=== PATIENT | male | born 1960 | race Caucasian/White ===

== ENCOUNTER 2019-06-02 06:14 | Day surgery (SDC) | payer OTHER ==
[2019-06-02] MEDS ORDERED: LACTATED RINGERS 1,000 ML IV ONE (06:28)
[2019-06-02] MEDS ORDERED: MIDAZOLAM 2 MG/2 ML VIAL IVP ONE (07:26)
[2019-06-02] MEDS ORDERED: fentaNYL 250 MCG/5 ML VIAL IVP ONE (07:26)
[2019-06-02 08:26] VITALS: BP 115/89
== END 2019-06-02 06:15 | disposition home or self-care (01) ==
LOC: SDS 06:14
PROVIDERS: ATTEND Internal Medicine Gastroenterology
PROC: 0DBM8ZZ Excision of Descending Colon, Via Natural or Artificial Opening Endoscopic (ICD-10-PCS; 2019-06-02)
PROC: 0DBH8ZZ Excision of Cecum, Via Natural or Artificial Opening Endoscopic (ICD-10-PCS; principal; 2019-06-02 07:30)
DX: Z12.11 Encounter for screening for malignant neoplasm of colon (principal); D12.0 Benign neoplasm of cecum; K63.5 Polyp of colon
CPT/HCPCS: 45380; J3010; J7120